=== PATIENT | female | born 1975 | race Two or more races ===

== ENCOUNTER 2019-10-20 16:31 | Emergency (ER) | payer SELFPAY ==
--- NOTE | 2019-10-20 18:05 | ER Document Report ---
ED Medical Screen (RME) - General Chief Complaint: Abdominal Pain Stated Complaint: FLANK PAIN Time Seen by Provider: 10/20/19 17:45 Notes: 44-year-old Tongan-speaking female with no medical problems presents to the emergency department with right upper quadrant abdominal pain x1 month that got acutely worse today. She says it radiates around to her mid back and is unilateral. Says it is worse after eating. Denies nausea or vomiting, denies fevers, denies constipation, does complain of urinary frequency with no dysuria or urgency, no abnormal vaginal discharge, LMP 09/30/2019. EXAM: Well-appearing in no acute distress, regular cardiac rate and rhythm, abdominal exam limited in triage but right upper quadrant tenderness to palpation I have greeted and performed a rapid initial assessment of this patient. A comprehensive ED assessment and evaluation of the patient, analysis of test results and completion of medical decision making process will be conducted by an additional ED providers. TRAVEL OUTSIDE OF THE [place] IN LAST 30 DAYS: No - Related Data Allergies/Adverse Reactions: No Known Allergies Allergy (Verified 10/20/19 17:46) Past Medical History - Social History Chew tobacco use (# tins/day): No Frequency of alcohol use: None Drug Abuse: None Physical Exam - Vital signs Vitals: Temp Pulse Resp BP Pulse Ox 98.8 F 82 16 141/73 H 97 10/20/19 16:48 10/20/19 16:48 10/20/19 16:48 10/20/19 16:48 10/20/19 16:48 Course - Vital Signs Vital signs: Temp Pulse Resp BP Pulse Ox 98.8 F 82 16 141/73 H 97 10/20/19 17:46 10/20/19 16:48 10/20/19 17:46 10/20/19 16:48 10/20/19 17:46
[2019-10-20 18:44] LABS: ABSOLUTE EOSINOPHILS # (AUTO) 0.2 10^3/uL (0.0-0.6); ABSOLUTE LYMPHOCYTES (AUTO) 2.5 10^3/uL (0.5-4.7); ABSOLUTE MONOCYTES (AUTO) 1.1 10^3/uL (0.1-1.4); ABSOLUTE NEUT (AUTO) 6.4 10^3/uL (1.7-8.2); BASOPHILS % (AUTO) 0.4 % (0-2); EOSINOPHILS % (AUTO) 2.4 % (0-6); HEMOGLOBIN 13.3 g/dL (12.0-15.5); LYMPHOCYTES % (AUTO) 24.7 % (13-45); MEAN CORPUSCULAR HEMOGLOBIN 26.8 pg (27.0-33.4); MEAN CORPUSCULAR HGB CONC 33.2 g/dL (32.0-36.0); MEAN CORPUSCULAR VOLUME 81 fl (80-97); MONOCYTES % (AUTO) 10.2 % (3-13); PLATELET COUNT 323 10^3/uL (150-450); RED BLOOD COUNT 4.96 10^6/uL (3.72-5.28); RED CELL DISTRIBUTION WIDTH 14.5 % (11.5-14.0); SEGMENTED NEUTROPHILS % (AUTO) 62.3 % (42-78); TOTAL CELLS COUNTED % (AUTO) 100 %; WHITE BLOOD COUNT 10.3 10^3/uL (4.0-10.5)
[2019-10-20 18:49] LABS: APPEARANCE,URINE CLEAR; BILIRUBIN,URINE NEGATIVE (NEGATIVE); COLOR,URINE YELLOW; GLUCOSE, URINE NEGATIVE (NEGATIVE); KETONES,URINE NEGATIVE (NEGATIVE); LEUKOCYTE ESTERASE,URINE NEGATIVE (NEGATIVE); NITRITE,URINE NEGATIVE (NEGATIVE); PROTEIN,URINE NEGATIVE (NEGATIVE); URINE SPECIFIC GRAVITY 1.019; UROBILINOGEN,URINE NEGATIVE mg/dL (<2.0)
[2019-10-20 19:14] LABS: ALBUMIN 4.4 g/dL (3.5-5.0); ALKALINE PHOSPHATASE 91 U/L (38-126); ANION GAP 12 (5-19); ASPARTATE AMINO TRANSFERASE 27 U/L (14-36); BILIRUBIN,DIRECT 0.1 mg/dL (0.0-0.4); BILIRUBIN,TOTAL 0.3 mg/dL (0.2-1.3); BLOOD UREA NITROGEN 18 mg/dL (7-20); CARBON DIOXIDE 26 mmol/L (22-30); CHLORIDE 103 mmol/L (98-107); GLUCOSE 80 mg/dL (75-110); POTASSIUM 4.3 mmol/L (3.6-5.0); TOTAL PROTEIN 7.4 g/dL (6.3-8.2)
--- NOTE | 2019-10-20 19:39 | RADIOLOGY REPORT (SQ) ---
EXAM DESCRIPTION: U/S ABDOMEN LTD W/DOPPLER COMPLETED DATE/TIME: 10/20/2019 7:25 pm REASON FOR STUDY: RUQ pain COMPARISON: None. TECHNIQUE: Dynamic and static grayscale images acquired of the abdomen and recorded on PACS. [facility] and spectral images recorded. LIMITATIONS: Body habitus, midline bowel gas FINDINGS: PANCREAS: No masses. Visualized pancreatic duct normal caliber. LIVER: Diffusely increased in echogenicity from fatty infiltration. No gross masses. LIVER VASCULATURE: Normal directional flow of the main portal vein and hepatic veins. GALLBLADDER: Contracted around multiple stones. Borderline gallbladder wall thickening. ULTRASOUND-DETECTED YBARRA'S SIGN: Negative. INTRAHEPATIC DUCTS AND COMMON DUCT: CBD and intrahepatic ducts normal caliber. No filling defects. D istal most common duct not well seen. INFERIOR VENA CAVA: Normal flow. AORTA: No aneurysm. RIGHT KIDNEY: Normal size. Normal echogenicity. No solid or suspicious masses. No hydronephrosis. No calcifications. PERITONEAL AND RIGHT PLEURAL SPACE: No ascites or effusions. OTHER: No other significant findings. IMPRESSION: Gallbladder contracted around multiple stones. Fatty liver TECHNICAL DOCUMENTATION: JOB ID: [id number]- All Rights Reserved Reading location - IP/workstation name: [email or web address]
[2019-10-20] MEDS ORDERED: ACETAMINOPHEN 325 MG TABLET PO ONE (20:02)
--- NOTE | 2019-10-20 20:38 | ER Document Report ---
ED GI/ - General Chief Complaint: Abdominal Pain Stated Complaint: FLANK PAIN Time Seen by Provider: 10/20/19 17:45 Notes: Patient is a 44-year-old female who presents to the emergency department with right upper quadrant abdominal pain. Patient states that she has had it for the past month but got worse today. She also states that it is worse after she eats. Denies any nausea, vomiting, diarrhea, or any other symptoms. Last menstrual cycle was September 30. She does not take any medications. Patient is visiting from [place] and she will return on October 26. TRAVEL OUTSIDE OF THE [place] IN LAST 30 DAYS: No - Related Data Allergies/Adverse Reactions: No Known Allergies Allergy (Verified 10/20/19 17:46) Past Medical History - Social History Smoking Status: Never Smoker Chew tobacco use (# tins/day): No Frequency of alcohol use: None Drug Abuse: None Family History: Reviewed & Not Pertinent Patient has suicidal ideation: No Patient has homicidal ideation: No Past Surgical History: Reports: Hx Abdominal Surgery - ada raygoza Review of Systems - Review of Systems Notes: REVIEW OF SYSTEMS: CONSTITUTIONAL : Denies recent illness. Denies recent unintentional weight loss. Denies fever, chills, or sweats. EENT: Denies eye, ear, throat, or mouth pain, discharge, or symptoms. Denies nasal or sinus congestion. CARDIOVASCULAR: Denies chest pain. RESPIRATORY: Denies shortness of breath, cough, congestion, difficulty breathing, or wheezing. GASTROINTESTINAL: See HPI. GENITOURINARY: Denies difficulty urinating, burning, blood in urine, urgency or frequency. MUSCULOSKELETAL: Denies neck and back pain. Denies joint pain or swelling. SKIN: Denies rash, itchiness, or lesions HEMATOLOGIC : Denies easy bruising or bleeding. LYMPHATIC: Denies swollen, painful, enlarged glands. NEUROLOGICAL: Denies no numbness or tingling denies weakness. Denies headache. Denies altered mental status. Denies alteration in speech. PSYCHIATRIC: Denies stress, anxiety, alteration in sleep patterns, or depression. All other systems reviewed and negative. Physical Exam - Vital signs Vitals: Temp Pulse Resp BP Pulse Ox 98.8 F 82 16 141/73 H 97 10/20/19 16:48 10/20/19 16:48 10/20/19 16:48 10/20/19 16:48 10/20/19 16:48 - Notes Notes: PHYSICAL EXAMINATION: GENERAL: Appears well, healthy, well-nourished, no acute distress. HEAD: Normocephalic, atraumatic. EYES: PERRL, conjunctiva normal, all extraocular movements intact, sclera nonicteric ENT: Moist mucous membranes. NECK: Supple, no noticeable swelling, redness, rash. Normal range of motion. LUNGS: Equal breath sounds bilaterally and clear to auscultation. No wheezes rales or rhonchi. CARDIOVASCULAR: S1-S2, regular rate, regular rhythm. Radial pulses 2+, normal. ABDOMEN: Normoactive bowel sounds. Soft, tender right upper quadrant, no guarding, no rebound tenderness, and no masses palpated. EXTREMITIES: Normal strength and range of motion, no pitting or edema. No cyanosis. NEUROLOGICAL: Moves all extremities upon command. Strength 5/5 in all extremities. PSYCH: Normal mood, normal affect. SKIN: Warm, dry. No rash, lesions, ulcerations noted. Normal skin turgor. Course - Re-evaluation Re-evalutation: 10/20/19 20:37 Patient's hematology is unremarkable. Chemistries are also unremarkable with a normal lipase and normal liver function test. Patient has a small amount of blood in her urine, although very low suspicion for a renal calculi, as the patient has had her symptoms for the past month. Ultrasound shows kidney stones. Discussed these findings with Dr. Cheek. He is in agreement that the patient can follow-up outpatient in [place]. I instructed patient on a low-fat diet. She is in agreement with this plan. Follow-up precautions were given. Follow-up precautions were given. Verbal discharge instructions were given to the patient. They verbalized understanding. They are stable for discharge. - Vital Signs Vital signs: Temp Pulse Resp BP Pulse Ox 98.8 F 82 16 141/73 H 97 10/20/19 17:46 10/20/19 16:48 10/20/19 17:46 10/20/19 16:48 10/20/19 17:46 - Laboratory Result Diagrams: 10/20/19 18:26 10/20/19 18:26 Laboratory results interpreted by me: 10/20/19 10/20/19 18:26 18:26 MCH 26.8 L RDW 14.5 H Urine Blood SMALL H Discharge - Discharge Clinical Impression: Gallstones Condition: Stable Disposition: HOME, SELF-CARE Instructions: Abdominal Pain ([facility]), Gallbladder Disease ([facility]), Low-Fat Diet ([facility]) Additional Instructions: You were seen for pain in your abdomen that is likely related to gallstones. Your work-up today does not show any signs that you need to have your gallbladder removed tonight. However, you you might need surgery as an outpatient in the coming weeks if you do not change which you eat. Please contact your primary care provider in [place] to be referred out to a surgeon there. Return to the ED immediately if you develop worsening pain, persistent vomiting, become unable to tolerate fluids, have a fever of >1004, or any other symptoms that are concerning to you. Print Language: German
[2019-10-20 21:09] VITALS: BP 132/84
== END 2019-10-20 21:05 | disposition home or self-care (01) ==
LOC: ER 16:31
DX: K80.80 Other cholelithiasis without obstruction (principal); R10.11 Right upper quadrant pain
CPT/HCPCS: 36415; 76705; 80053; 81001; 81025; 83690; 85025; 93976; 99284

== ENCOUNTER 2020-03-17 13:06 | Emergency (ER) | payer SELFPAY ==
[2020-03-17] MEDS ORDERED: ONDANSETRON HCL INJ/PF 4 MG/2 ML SDV IV ONE (14:20)
[2020-03-17] MEDS ORDERED: RINGERS SOLUTION,LACTATED 1,000 ML IV ONE (14:20)
--- NOTE | 2020-03-17 14:22 | ER Document Report ---
ED Fever - General Chief Complaint: Diarrhea Stated Complaint: FEVER Time Seen by Provider: 03/17/20 13:36 Mode of Arrival: Stretcher Information source: Patient, Relative - daughter Notes: 44-year-old Cuban-speaking female presents to the emergency room with no previous medical problems complaining of a subjective fever, nausea without vomiting, weakness, diarrhea, abdominal pain which she describes as cramping and generalized as well as decreased appetite for 2 weeks. States she has had about 3 loose stools a day. She denies any is watery or mucousy with no foul order noted. States she has been taking 800 mg of ibuprofen and alternating with Tylenol with minimal relief. No meds since exam this morning. She denies any recent travel. No ill contacts. No exposure to COVID-19. No other ill family members, no bad food she can think of. No recent antibiotics. TRAVEL OUTSIDE OF THE [place] IN LAST 30 DAYS: No - Related Data Allergies/Adverse Reactions: No Known Allergies Allergy (Verified 03/17/20 17:18) Past Medical History - General Information source: Patient, Relative - Social History Smoking Status: Never Smoker Frequency of alcohol use: None Drug Abuse: None Lives with: Family Family History: Reviewed & Not Pertinent Patient has homicidal ideation: No - Medical History Medical History: Negative Past Surgical History: Reports: Hx Abdominal Surgery - keenanmy idalmis Review of Systems - Review of Systems Constitutional: Fever, Weakness EENT: No symptoms reported Cardiovascular: No symptoms reported Respiratory: No symptoms reported Gastrointestinal: Abdominal pain, Diarrhea, Nausea. denies: Vomiting Genitourinary: No symptoms reported Musculoskeletal: No symptoms reported Skin: No symptoms reported -: Yes All other systems reviewed and negative Physical Exam - Vital signs Vitals: Temp Pulse Resp BP Pulse Ox 98.8 F 101 H 16 136/83 H 95 03/17/20 13:19 03/17/20 13:19 03/17/20 13:19 03/17/20 13:19 03/17/20 13:19 - General General appearance: Appears well, Alert In distress: Mild - HEENT Head: Normocephalic, Atraumatic Eyes: Normal Pupils: PERRL - Respiratory Respiratory status: No respiratory distress Chest status: Nontender Breath sounds: Normal Chest palpation: Normal - Cardiovascular Rhythm: Tachycardia Heart sounds: Normal auscultation Murmur: No - Abdominal Inspection: Normal Distension: No distension Bowel sounds: Normal Tenderness: Nontender. No: Guarding, Rebound Organomegaly: No organomegaly - Back Back: Normal, Nontender. No: CVA tenderness - Neurological Neuro grossly intact: Yes Cognition: Normal Orientation: AAOx4 Jr Coma Scale Eye Opening: Spontaneous Jr Coma Scale Verbal: Oriented Dawson Coma Scale Motor: Obeys Commands Dawson Coma Scale Total: 15 Speech: Normal Motor strength normal: LUE, RUE, LLE, RLE Sensory: Normal - Skin Skin Temperature: Warm Skin Moisture: Dry Skin Color: Normal Course - Re-evaluation Re-evalutation: 03/17/20 14:23 Patient presents with complaints of fever, nausea, generalized weakness, will get CBC, CMP, urinalysis, urine cultures, chest x-ray, IV fluids, antipyretics, reevaluate. 03/17/20 17:48 Patient is resting comfortably, currently pain-free on exam. No diarrhea since arrival to the emergency room. Able to tolerate p.o. fluids. Reviewed lab and ultrasound results with patient. Counseled on bland diet, outpatient follow-up with primary care physician if not improving in 2 -3 days. On-call physician was provided. Patient was given strict return to the emergency room guidelines. All questions were answered. Patient verbalized understanding and agrees with plan of care. 03/17/20 18:04 - Vital Signs Vital signs: Temp Pulse Resp BP Pulse Ox 98.4 F 96 16 142/82 H 95 03/17/20 17:05 03/17/20 17:05 03/17/20 17:05 03/17/20 17:05 03/17/20 17:05 - Laboratory Result Diagrams: 03/17/20 13:33 03/17/20 13:33 Laboratory results interpreted by me: 03/17/20 03/17/20 03/17/20 13:33 13:33 13:33 MCV 79 L MCH 26.4 L Lymph % (Auto) 11.8 L Seg Neutrophils % 80.5 H Creatinine 0.47 L Glucose 124 H AST 44 H ALT 56 H Urine Blood SMALL H - Diagnostic Test Radiology reviewed: Reports reviewed Discharge - Discharge Clinical Impression: Abdominal pain of unknown etiology, Nausea Fever Qualifiers: Fever type: unspecified Qualified Code(s): R50.9 - Fever, unspecified Diarrhea Qualifiers: Diarrhea type: unspecified type Qualified Code(s): R19.7 - Diarrhea, unspecified Condition: Stable Disposition: HOME, SELF-CARE Instructions: Abdominal Pain ([facility]), Fever ([facility]), Viral Syndrome ([facility]) Additional Instructions: [place] diet for the next 24 hours. Follow-up with a primary care physician or the clinic if not improving in 2 to 3 days. Return for any new or worsening symptoms. Prescriptions: Ondansetron [Zofran Odt 4 mg Tablet] 1 tab PO Q4H PRN #15 tab.rapdis PRN Reason: For Nausea/Vomiting Referrals: JOHN QUICK MD [ACTIVE STAFF] - Follow up as needed Print Language: Cuban
[2020-03-17 14:39] LABS: ABSOLUTE LYMPHOCYTES (AUTO) 0.6 10^3/uL (0.5-4.7); ABSOLUTE MONOCYTES (AUTO) 0.4 10^3/uL (0.1-1.4); ABSOLUTE NEUT (AUTO) 4.4 10^3/uL (1.7-8.2); APPEARANCE,URINE CLEAR; BASOPHILS % (AUTO) 0.2 % (0-2); BILIRUBIN,URINE NEGATIVE (NEGATIVE); COLOR,URINE COLORLESS; EOSINOPHILS % (AUTO) 0.1 % (0-6); GLUCOSE, URINE NEGATIVE (NEGATIVE); HEMATOCRIT 38.8 % (36.0-47.0); KETONES,URINE NEGATIVE (NEGATIVE); LEUKOCYTE ESTERASE,URINE NEGATIVE (NEGATIVE); LYMPHOCYTES % (AUTO) 11.8 % (13-45); MEAN CORPUSCULAR HEMOGLOBIN 26.4 pg (27.0-33.4); MEAN CORPUSCULAR HGB CONC 33.4 g/dL (32.0-36.0); MEAN CORPUSCULAR VOLUME 79 fl (80-97); MONOCYTES % (AUTO) 7.4 % (3-13); NITRITE,URINE NEGATIVE (NEGATIVE); PLATELET COUNT 234 10^3/uL (150-450); PROTEIN,URINE NEGATIVE (NEGATIVE); SEGMENTED NEUTROPHILS % (AUTO) 80.5 % (42-78); TOTAL CELLS COUNTED % (AUTO) 100 %; URINE SPECIFIC GRAVITY 1.003; UROBILINOGEN,URINE NEGATIVE mg/dL (<2.0); WHITE BLOOD COUNT 5.4 10^3/uL (4.0-10.5)
[2020-03-17 14:43] LABS: ALBUMIN 3.9 g/dL (3.5-5.0); ALKALINE PHOSPHATASE 86 U/L (38-126); ANION GAP 6 (5-19); ASPARTATE AMINO TRANSFERASE 44 U/L (14-36); BILIRUBIN,DIRECT 0.1 mg/dL (0.0-0.4); BILIRUBIN,TOTAL 0.3 mg/dL (0.2-1.3); BLOOD UREA NITROGEN 7 mg/dL (7-20); CALCIUM 8.5 mg/dL (8.4-10.2); CARBON DIOXIDE 27 mmol/L (22-30); CHLORIDE 105 mmol/L (98-107); GLUCOSE 124 mg/dL (75-110); POTASSIUM 4.3 mmol/L (3.6-5.0)
--- NOTE | 2020-03-17 15:15 | RADIOLOGY REPORT (SQ) ---
EXAM DESCRIPTION: CHEST SINGLE VIEW IMAGES COMPLETED DATE/TIME: 03/17/2020 2:41 pm REASON FOR STUDY: fever COMPARISON: None. EXAM PARAMETERS: NUMBER OF VIEWS: One view. TECHNIQUE: Single frontal radiographic view of the chest acquired. RADIATION DOSE: NA LIMITATIONS: None. FINDINGS: LUNGS AND PLEURA: No opacities, masses or pneumothorax. No pleural effusion. MEDIASTINUM AND HILAR STRUCTURES: No masses. Contour normal. HEART AND VASCULAR STRUCTURES: Heart normal in size. Normal vasculature. BONES: No acute findings. HARDWARE: None in the chest. OTHER: No other significant finding. IMPRESSION: NO ACUTE RADIOGRAPHIC FINDING IN THE CHEST. TECHNICAL DOCUMENTATION: JOB ID: [id number] 2010 [employer]- All Rights Reserved Reading location - IP/workstation name: [email or web address]
--- NOTE | 2020-03-17 17:38 | RADIOLOGY REPORT (SQ) ---
EXAM DESCRIPTION: U/S ABDOMEN LIMITED W/O DOP IMAGES COMPLETED DATE/TIME: 03/17/2020 5:22 pm REASON FOR STUDY: abdominal pain COMPARISON: 10/20/2019 TECHNIQUE: Dynamic and static grayscale images acquired of the abdomen and recorded on PACS. [facility] selected color Doppler and spectral images recorded. LIMITATIONS: None. FINDINGS: PANCREAS: The head of the pancreas is of normal echogenicity. The body and tail obscured by overlying bowel gas. LIVER: The liver measures 15.3 cm in length. Fatty liver. Limited visualization due to patient's b rasheeda habitus. LIVER VASCULATURE: Normal directional flow of the main portal vein and hepatic veins. GALLBLADDER: Interval cholecystectomy since the prior examination. ULTRASOUND-DETECTED YBARRA'S SIGN: Negative. INTRAHEPATIC DUCTS AND COMMON DUCT: CBD measures 5.0 mm in diameter, normal. The intrahepatic ducts normal caliber. No filling defects. INFERIOR VENA CAVA: Normal flow. AORTA: No aneurysm. RIGHT KIDNEY: The right kidney measures 11.4 cm in length, normal size. Normal echogenicity. No xavier id or suspicious masses. No hydronephrosis. No calcifications. PERITONEAL AND RIGHT PLEURAL SPACE: No ascites or effusions. OTHER: No other significant findings. IMPRESSION: 1. The examination is limited due to the patient's body habitus and overlying bowel gas . The body and tail of the pancreas obscured by overlying bowel gas. 2. Fatty liver. Evaluation limited due to patient's body habitus. 3. Interval cholecystectomy since the prior examination. TECHNICAL DOCUMENTATION: JOB ID: [id number] 2010 [employer]- All Rights Reserved Reading location - IP/workstation name: [email or web address]
[2020-03-17 18:40] VITALS: BP 135/77
== END 2020-03-17 18:51 | disposition home or self-care (01) ==
LOC: ER 13:06
DX: R19.7 Diarrhea, unspecified (principal); R50.9 Fever, unspecified; R11.0 Nausea; R10.9 Unspecified abdominal pain; R63.0 Anorexia; R53.1 Weakness; R00.0 Tachycardia, unspecified
CPT/HCPCS: 99284; 36415; 83690; 85025; 81025; 80053; 81001; 71045; 76705; J2405; J7120